=== PATIENT | female | born 1940 | race Two or more races ===

== ENCOUNTER 2017-09-13 12:51 | Emergency (ER) | payer MEDICARE, MEDICAID ==
[~2017-09-13] VITALS: Ht 157.5 cm; Wt 61.2 kg
[~2017-09-13 12:51] MED LIST: ACET500C OR; BRIM0.1S3 OP; BRIM0.2S17 OP; DICL-163 OR; DIOVAN; DONE5TAB11 OR; DORZ1SOL OP; DORZ2SOL9 OP; DOXY100C46 OR; INSUPOW; ISOSPOW2; POLYSOL5 OP; SIMV-13 OR; TRAM50TA2 OR; VALS80TA42 OR; [UNRECOGNIZED DRUG - OTHER] OP
[2017-09-13] MEDS ORDERED: SODIUM CHLORIDE 0.9% 500 ML IVB ONE (14:10)
[2017-09-13 14:21] LABS: Basophils # (auto) 0 uL; Basophils % (auto) 0.3 % (0.0-2.0); Eosinophils # (auto) 0.2 uL; Eosinophils % (auto) 1.6 % (0.0-7.0); Hematocrit 38.1 % (36.0-46.0); Hemoglobin 12.7 g/dL (12.2-16.2); Lymphocytes # (auto) 1.5 uL; Mean Corpuscular Hemoglobin 31.6 pg (28.0-32.0); Mean Corpuscular Hgb Conc. 33.3 g/dL (32.0-36.0); Mean Corpuscular Volume 94.9 fL (80.0-100.0); Monocytes # (auto) 0.8 uL; Neutrophils # (auto) 8.4 uL; Neutrophils % (auto) 77.1 % (37.0-80.0); Platelet Count (auto) 275 10^3/uL (140-450); Red Blood Cells 4.01 10^6/uL (4.0-5.20); Red Cell Distribution Width 12.9 % (11.8-14.3); White Blood Cell 10.9 10^3/uL (4.4-10.8)
[2017-09-13 14:42] LABS: Alanine Aminotransferase 23 U/L (13-56); Albumin 3.5 g/dL (3.4-5.0); Alkaline Phosphatase 110 U/L (45-117); Anion Gap 10 (5-15); Aspartate Aminotransferase 16 U/L (15-37); BUN/Creatinine Ratio 26.4; Bilirubin, Total 0.3 mg/dL (0.2-1.0); Blood Urea Nitrogen 34 mg/dL (7-18); Calcium 9.2 mg/dL (8.5-10.1); Carbon Dioxide 23 mmol/L (21-32); Chloride 106 mmol/L (98-107); GFR African American 52 mL/min; GFR Non-African American 43 mL/min; Glucose 225 mg/dL (74-106); Potassium 4.4 mmol/L (3.5-5.1); Sodium 139 mmol/L (136-145); Total Protein 7.3 g/dL (6.4-8.2)
[2017-09-13 16:30] VITALS: BP 100/65
== END 2017-09-13 16:55 | disposition home or self-care (01) ==
LOC: EDBD 12:51 → ER 12:51
DX: E11.65 Type 2 diabetes mellitus with hyperglycemia (principal); R52 Pain, unspecified; R42 Dizziness and giddiness; M19.90 Unspecified osteoarthritis, unspecified site; I10 Essential (primary) hypertension; Z79.4 Long term (current) use of insulin; Z79.899 Other long term (current) drug therapy; Z90.710 Acquired absence of both cervix and uterus; Z90.49 Acquired absence of other specified parts of digestive tract
CPT/HCPCS: 36415; 70450; 71010; 80053; 83735; 84484; 85025; 93005; 94761

== ENCOUNTER 2018-10-15 18:34 | Inpatient (IN) | payer MEDICARE, MEDICAID | END 2018-11-08 18:12 | disposition still patient (30) | LOC: OVERFLOW 10-16 07:22 → TELE-EAST 10-18 15:16 → ICU WEST 10-19 17:06 → EAST 10-16 15:11 → ER 18:34 | PROC: 5A1955Z Respiratory Ventilation, Greater than 96 Consecutive Hours (ICD-10-PCS; principal; 2018-10-24 12:50) | PROC: 0BH17EZ Insertion of Endotracheal Airway into Trachea, Via Natural or Artificial Opening (ICD-10-PCS; 2018-10-24 12:50) | PROC: 0D1B0Z4 Bypass Ileum to Cutaneous, Open Approach (ICD-10-PCS; 2018-10-24 12:50) | DX: A41.52 Sepsis due to Pseudomonas (principal); G92 Toxic encephalopathy; N17.0 Acute kidney failure with tubular necrosis; J18.9 Pneumonia, unspecified organism; R65.21 Severe sepsis with septic shock; J96.00 Acute respiratory failure, unspecified whether with hypoxia or hypercapnia; N13.6 Pyonephrosis; E44.0 Moderate protein-calorie malnutrition; E87.2 Acidosis; E87.0 Hyperosmolality and hypernatremia; K59.39 Other megacolon; D68.9 Coagulation defect, unspecified; K55.9 Vascular disorder of intestine, unspecified; N30.90 Cystitis, unspecified without hematuria; E11.21 Type 2 diabetes mellitus with diabetic nephropathy; E11.22 Type 2 diabetes mellitus with diabetic chronic kidney disease; E87.6 Hypokalemia; F03.90 Unspecified dementia, unspecified severity, without behavioral disturbance, psychotic disturbance, mood disturbance, and anxiety; F41.9 Anxiety disorder, unspecified; N18.3 Chronic kidney disease, stage 3 (moderate); K62.4 Stenosis of anus and rectum; Z90.710 Acquired absence of both cervix and uterus; D64.9 Anemia, unspecified; E83.42 Hypomagnesemia; E83.51 Hypocalcemia; D63.1 Anemia in chronic kidney disease; D69.6 Thrombocytopenia, unspecified; I12.9 Hypertensive chronic kidney disease with stage 1 through stage 4 chronic kidney disease, or unspecified chronic kidney disease ==